=== PATIENT | male | born 1970 | race Caucasian/White ===

== ENCOUNTER → 2016-10-02 | Outpatient (REF) ==
[~2016-10-02] MED LIST: NORCO 325 MG-51 TAB PO
== END ==
LOC: WSOH 12:20
DX: Z02.89 Encounter for other administrative examinations (principal)

== ENCOUNTER → 2017-01-03 | Outpatient (REF) | LOC: WSOH 11:04 | DX: Z02.89 Encounter for other administrative examinations (principal) ==

== ENCOUNTER → 2017-06-30 | Outpatient (CLI) | payer BC | LOC: COL.CARD 06-26 08:00 | DX: I10 Essential (primary) hypertension (principal) ==

== ENCOUNTER 2020-01-28 04:02 | Emergency (ER) | payer BC ==
[~2020-01-28] VITALS: Ht 188 cm; Wt 115.5 kg
[2020-01-28 04:05] VITALS: TEMP 97.8
[2020-01-28] MEDS ORDERED: ZESTRIL 20MG TA20 MG PO (04:09)
[2020-01-28] MEDS ORDERED: ZESTORETIC 12.51 TA1 PO (04:10)
[2020-01-28 04:42] LABS: BASO % 0.2 % (0.0-2.0); EOS # 0.2 (0.0-0.7); EOS % 1.4 % (0-4.0); GRAN # 8.3 (1.4-6.5); GRAN % 69.2 % (42.2-75.2); HEMATOCRIT 42.8 % (42.0-52.0); HEMOGLOBIN 13.9 g/dl (13.5-18.0); LYMPH # 2.3 (1.2-3.4); LYMPH % 19.3 % (20.0-51.0); MEAN CELL VOLUME 89 fl (80.0-100.0); MEAN CORPUSCULAR HEMOGLOBIN 29 pg (27.0-31.0); MEAN CORPUSCULAR HGB CONC 33 g/dl (33.0-37.0); MEAN PLATELET VOLUME 12.1 fl (7.4-10.4); MONO # 1.1 (0.1-0.6); MONO % 9.4 % (1.7-9.3); PLATELET COUNT 216 K/mm3 (130-400); RED BLOOD COUNT 4.82 M/mm3 (4.20-5.60)
[2020-01-28 05:16] LABS: COLLECTION METHOD CLEAN CATCH
[2020-01-28 05:22] LABS: MUCOUS Present /lpf; PH 6 (5-8); SQUAMOUS EPITHELIAL None Seen /hpf; URINE APPEARANCE Clear; URINE BACTERIA None Seen /hpf; URINE BILIRUBIN Negative (NEGATIVE); URINE BLOOD 1+ (NEGATIVE); URINE COLOR Yellow; URINE GLUCOSE Negative (NEGATIVE); URINE KETONE Trace (NEGATIVE); URINE LEUKOCYTE ESTERASE Negative (NEGATIVE); URINE NITRATE Negative (NEGATIVE); URINE PROTEIN(semi-quant) Negative (NEGATIVE); URINE RBC 0-2 /hpf; URINE UROBILINOGEN Negative (NEGATIVE)
[2020-01-28 05:36] LABS: ALBUMIN 4.2 gm/dL (3.5-5.0); BILIRUBIN,TOTAL 0.8 mg/dL (0.0-1.0); CALCIUM 8.9 mg/dL (8.4-10.2); CREATININE, serum 1.11 (0.66-1.25); POTASSIUM 3.9 mmol/L (3.4-5.0); TOTAL PROTEIN 7.5 gm/dL (6.4-8.2)
[2020-01-28] MEDS ORDERED: LEVAQUIN 750MG750 M1 PO (07:18)
[2020-01-28] MEDS ORDERED: FLAGYL500 MG PO (07:18)
[2020-01-28 07:29] VITALS: BP 145/104; PULSE 71
== END 2020-01-28 07:37 | disposition home or self-care (01) ==
LOC: COL.ER 04:02
PROVIDERS: Emergency Medicine
DX: K57.92 Diverticulitis of intestine, part unspecified, without perforation or abscess without bleeding (principal); I10 Essential (primary) hypertension
CPT/HCPCS: J7030; Q9967